=== PATIENT | female | born 1980 | race Caucasian/White ===

== ENCOUNTER 2016-10-25 09:47 | Inpatient (IN) | payer MEDICAID ==
[2016-10-25] VITALS (18 sets, daily range): BP systolic 99–135; BP diastolic 50–116; PULSE 59–88; TEMP 97.4–99.1
[~2016-10-25] VITALS: Ht 172.7 cm; Wt 150.0 kg
[~2016-10-25 09:47] MED LIST: MOTRIN 600600 MG/TAB PO; PERCOCET 325 MG1 TA2 PO; PRENATAL1 TA1 PO; ZYRTEC 10MG10 MG PO
[2016-10-25] MEDS ORDERED: PRILOSEC10 MG PO (10:35)
[2016-10-25 10:37] LABS: BASO % 0.3 % (0.0-2.0); EOS % 0.3 % (0-4.0); GRAN # 4.6 (1.4-6.5); GRAN % 68.4 % (42.2-75.2); HEMATOCRIT 40.8 % (37.0-47.0); HEMOGLOBIN 13.9 g/dl (12.5-16.0); LYMPH # 1.6 (1.2-3.4); LYMPH % 24.6 % (20.0-51.0); MEAN CELL VOLUME 89 fl (80.0-100.0); MEAN CORPUSCULAR HEMOGLOBIN 30 pg (27.0-31.0); MEAN CORPUSCULAR HGB CONC 34 g/dl (33.0-37.0); MONO # 0.4 (0.1-0.6); PLATELET COUNT 250 K/mm3 (130-400); RED BLOOD COUNT 4.58 M/mm3 (4.10-5.30); REDCELL DISTRIBUTION WIDTH-CV 13.7 % (11.5-14.5); WHITE BLOOD COUNT 6.7 K/mm3 (4.8-10.8)
[2016-10-26 04:30] VITALS: BP 116/62; PULSE 64; TEMP 98.1
[2016-10-26] MEDS ORDERED: MOTRIN 600600 MG/TAB PO (08:18)
[2016-10-26] MEDS ORDERED: PERCOCET 325 MG1 TA2 PO (08:18)
[2016-10-26 09:45] VITALS: BP 114/61; PULSE 79; TEMP 97.8
[2016-10-26 12:13] VITALS: BP 123/69; PULSE 79; TEMP 98.2
[2016-10-26 15:19] VITALS: BP 113/63; PULSE 70; TEMP 98.1
[2016-10-27 07:25] VITALS: BP 118/77; PULSE 81; TEMP 98.2
[2016-10-27 16:25] VITALS: BP 110/56; PULSE 76; TEMP 97.9
[2016-10-27 19:00] VITALS: BP 116/54; PULSE 63; TEMP 97.7
[2016-10-28 10:06] VITALS: BP 138/75; PULSE 74; TEMP 98.2
== END 2016-10-28 13:30 | disposition home or self-care (01) | DRG 765 ==
LOC: OB 09:47 → LDR 09:49 → EDSTATUS 10-27 09:47 → LDRO 10-27 16:11 → OB 10-28 13:30
PROVIDERS: Obstetrics & Gynecology
PROC: 10D00Z1 Extraction of Products of Conception, Low, Open Approach (ICD-10-PCS; principal; 2016-10-25)
DX: O34.211 Maternal care for low transverse scar from previous cesarean delivery (principal); Z68.41 Body mass index [BMI] 40.0-44.9, adult; N85.8 Other specified noninflammatory disorders of uterus; O99.824 Streptococcus B carrier state complicating childbirth; O69.81X0 Labor and delivery complicated by cord around neck, without compression, not applicable or unspecified; O99.214 Obesity complicating childbirth; E66.9 Obesity, unspecified; Z3A.38 38 weeks gestation of pregnancy; Z37.0 Single live birth
CPT/HCPCS: J0690; J1885; J2405; J2590; J7120

== ENCOUNTER → 2018-11-04 | Outpatient (CLI) | payer BC, MEDICAID ==
[~2018-11-04] MED LIST changes: +PRILOSEC10 MG PO
== END ==
LOC: COL.RAD 09:46
DX: M79.671 Pain in right foot (principal)
CPT/HCPCS: J3301; Q9967

== ENCOUNTER → 2019-02-25 | Outpatient (CLI) | payer BC, MEDICAID | LOC: COL.RAD 08:00 | DX: M79.671 Pain in right foot (principal) | CPT/HCPCS: J3301; Q9967 ==

== ENCOUNTER → 2019-11-12 | Outpatient (CLI) | payer BC, MEDICAID | LOC: COL.RAD 13:00 | DX: M79.671 Pain in right foot (principal) | CPT/HCPCS: J3301; Q9967 ==